=== PATIENT | male | born 1995 | race Caucasian/White ===

== ENCOUNTER 2017-09-21 19:50 | Emergency (ER) | payer OTHER ==
--- NOTE | 2017-09-21 20:00 | UC ---
Back Pain HPI - HPI Summary HPI Summary: 21 year old male presents with complains of back pain for 2 weeks and chronic stomach pain secondary to gastroparesis. - History of Current Complaint Stated Complaint: BACK/STOMACH PAINS Time Seen by Provider: 09/21/17 20:00 Hx Obtained From: Patient Onset/Duration: Lasting Weeks Timing: Constant Severity Initially: Moderate Severity Currently: Moderate Back Pain: Is Discrete @ - right si - Allergies/Home Medications Allergies/Adverse Reactions: Allergies Allergy/AdvReac Type Severity Reaction Status Date / Time Amoxicillin [From Augmentin] AdvReac Intermediate Vomiting Verified 09/21/17 20: 07 Clavulanic Acid AdvReac Intermediate Vomiting Verified 09/21/17 20:07 [From Augmentin] Home Medications: Home Medications Omeprazole CAP* [Prilosec CAP* 20 MG] 20 mg PO DAILY 09/21/17 [History Confirmed 09/21/17] PMH/Surg Hx/FS Hx/Imm Hx Previously Healthy: Yes - Surgical History Surgical History: Yes Surgery Procedure, Year, and Place: hernia repair. T & A - Family History Known Family History: Positive: None - Social History Alcohol Use: Occasionally Substance Use Type: None, Marijuana Smoking Status (MU): Former Smoker Type: Cigarettes Amount Used/How Often: 2-3 DAY Length of Time of Smoking/Using Tobacco: 7 YRS Have You Smoked in the Last Year: Yes When Did the Patient Quit Smoking/Using Tobacco: 2ppd Household Exposure Type: Cigarettes - Immunization History Vaccination Up to Date: Yes Review of Systems Constitutional: Negative Skin: Negative Eyes: Negative ENT: Negative Respiratory: Negative Cardiovascular: Negative Gastrointestinal: Abdominal Pain - diffuse Genitourinary: Negative Motor: Negative Neurovascular: Negative Musculoskeletal: Other: - right si joint pain Neurological: Negative Psychological: Negative All Other Systems Reviewed And Are Negative: Yes Physical Exam Triage Information Reviewed: Yes Vital Signs Reviewed: Yes Eye Exam: Normal ENT Exam: Normal Dental Exam: Normal Neck exam: Normal Neck: Positive: 1 Respiratory Exam: Normal Cardiovascular Exam: Normal Abdomen Description: Positive: Other: - diffuse tenderness Musculoskeletal: Positive: Other: - right si joint pain Neurological Exam: Normal Psychological Exam: Normal Skin Exam: Normal Back Pain Course/Dx - Differential Dx/Diagnosis Provider Diagnoses: right si joint pain. diffuse abominal pain Discharge - Discharge Plan Condition: Stable Disposition: HOME Prescriptions: Meloxicam(NF) [Mobic(NF)] 7.5 mg PO BID #30 tab Methocarbamol TAB* [Robaxin 500 MG TAB*] 500 mg PO TID PRN #30 tab PRN Reason: Spasms - Back Ondansetron TAB* [Zofran 4 MG Tab*] 4 mg PO Q8H PRN #12 tab PRN Reason: Nausea Patient Education Materials: Muscle Spasm (ED), Gastroparesis (ED) Referrals: Phoebe Hart PA [Primary Care Provider] - Joshua Dunn [Physical Therapist] -
[2017-09-21 20:06] VITALS: BP 113/61
[2017-09-21] MEDS ORDERED: Ondansetron ODT TAB* 4 MG PO ONE (20:14)
[2017-09-21] MEDS ORDERED: predniSONE TAB* 20 MG PO ONE (20:16)
== END 2017-09-21 20:28 | disposition home or self-care (01) ==
LOC: UCCORT 19:50
DX: M53.3 Sacrococcygeal disorders, not elsewhere classified (principal); R10.84 Generalized abdominal pain; Z87.891 Personal history of nicotine dependence; Z88.1 Allergy status to other antibiotic agents
CPT/HCPCS: 99212; A9270-GY; G0463; J7512

== ENCOUNTER 2017-10-02 20:36 | Emergency (ER) | payer OTHER ==
[2017-10-02 20:56] VITALS: BP 112/59
--- NOTE | 2017-10-02 20:57 | UC ---
Back Pain HPI - HPI Summary HPI Summary: Pt presents with mid/upper back pain and chronic nausea. 1) Back pain. He tells me that about a month ago he woke up and had an aching pain in his mid to upper back that was worse with movement. Resting improved his pain. He tried tylenol and ibuprofen without relief. About 2 weeks ago he came to our UC and was rx'd meloxicam and robaxin, he has been taking those with mild relief. He denies specific injury, numbness, tingling, radiation of pain, dysuria, flank pain, chest pain, SOB, or headaches. 2) Chronic nausea. He tells me that he has a history of gastroparesis. He is being followed by GI and is scheduled to see his doctor next week for medication adjustments. Over the last 2 weeks his nausea has gotten worse. At that same visit 2 weeks ago to our UC, he was rx'd Zofran to use intermittently - he reports great relief and would like a refill of this until his GI appt next week. He denies vomiting, increased abdominal pain, diarrhea, constipation , blood in his stool, or dark stools. - History of Current Complaint Chief Complaint: UCBackPain Stated Complaint: BACK PAIN/NAUSEA Time Seen by Provider: 10/02/17 20:56 Hx Obtained From: Patient Onset/Duration: Gradual Onset Timing: Constant Severity Initially: Moderate Severity Currently: Moderate Pain Intensity: 7 Pain Scale Used: 0-10 Numeric - Allergies/Home Medications Allergies/Adverse Reactions: Allergies Allergy/AdvReac Type Severity Reaction Status Date / Time Amoxicillin [From Augmentin] AdvReac Intermediate Vomiting Verified 10/02/17 20: 51 Clavulanic Acid AdvReac Intermediate Vomiting Verified 10/02/17 20:51 [From Augmentin] PMH/Surg Hx/FS Hx/Imm Hx GI/ History: Gastroesophageal Reflux, Ulcer, Other Other GI/ History: Gastroparesis - Surgical History Surgical History: Yes Surgery Procedure, Year, and Place: Inguinal Herniorrhaphies. T&A - Family History Known Family History: Positive: None - Social History Occupation: Employed Full-time Lives: Alone Alcohol Use: None Alcohol Amount: Previous alcohol abuse Substance Use Type: None Smoking Status (MU): Heavy Every Day Tobacco Smoker Type: Cigarettes Amount Used/How Often: 1 PPD Length of Time of Smoking/Using Tobacco: Since Age 17 Have You Smoked in the Last Year: Yes When Did the Patient Quit Smoking/Using Tobacco: 2ppd Household Exposure Type: Cigarettes Cessation Counseling: Patient Advised to Stop - Immunization History Most Recent Influenza Vaccination: Not the 2016/2017 Season Vaccination Up to Date: Yes Review of Systems Constitutional: Negative Skin: Negative Eyes: Negative ENT: Negative Respiratory: Negative Cardiovascular: Negative Gastrointestinal: Nausea Genitourinary: Negative Motor: Negative Neurovascular: Negative Musculoskeletal: Decreased ROM - Back, Other: - Mid/Upper back pain Neurological: Negative Psychological: Negative All Other Systems Reviewed And Are Negative: Yes Physical Exam Triage Information Reviewed: Yes Appearance: Well-Appearing, No Pain Distress, Well-Nourished Vital Signs: Initial Vital Signs Temp 98.1 F 10/02/17 20:47 Pulse 76 10/02/17 20:47 Resp 16 10/02/17 20:47 BP 112/59 10/02/17 20:47 Pulse Ox 100 10/02/17 20:47 Vital Signs Reviewed: Yes Eyes: Positive: Conjunctiva Clear. Negative: Conjunctiva Inflamed, Discharge Neck: Positive: Supple, No Lymphadenopathy, Other: - FROM. NTTP. No vertebral tenderness. Respiratory: Positive: Chest non-tender, Lungs clear, Normal breath sounds, No respiratory distress Cardiovascular: Positive: RRR, No Murmur, Pulses Normal Abdomen Description: Positive: Nontender, No Organomegaly, Soft. Negative: CVA Tenderness (R), CVA Tenderness (L), Distended, Guarding Bowel Sounds: Positive: Present Musculoskeletal: Positive: Strength Intact - B/L UEs and LEs. Dorsiflexion and plantar flexion., No Edema, ROM Limited @ - Spine flexion due to pain., Other: - TTP over paraspinal muscles upper and mid back bilaterally. No vertebral tenderess. No obvious bony deformities or scoliosis. Neurological: Positive: Alert, Muscle Tone Normal, Other: - CN II-XII grossly intact. No focal deficits. C4-T1 sensations intact. L3-S1 sensations intact. Reflexes normal throughout. Psychological: Positive: Age Appropriate Behavior Skin: Positive: Other - No ecchymosis.. Negative: rashes Back Pain Course/Dx - Course Course Of Treatment: Strongly advised follow up with his PCP regarding his ongoing back pain. Advised to stop meloxicam and robaxin - will try Flexeril and Diclofenac. Rest and use a heating pad on the areas of discomfort. Will rx for another course of Zofran, enough to get him to his appointment with his GI next week. Strongly advised to keep that appointment. - Differential Dx/Diagnosis Differential Diagnosis/HQI/PQRI: Herniated Disc, Strain, Sprain, Other - Nausea. Provider Diagnoses: Upper back muscle spasm. Gastroparesis. Nausea Discharge - Discharge Plan Condition: Stable Disposition: HOME Prescriptions: Cyclobenzaprine TAB* [Flexeril 10 MG TAB*] 10 mg PO BEDTIME PRN #10 tab PRN Reason: Pain Diclofenac Sodium EC TAB* [Voltaren EC TAB*] 25 mg PO TID PRN #30 tab.ec PRN Reason: Pain Ondansetron TAB* [Zofran 4 MG Tab*] 4 mg PO Q8H PRN #12 tab PRN Reason: Nausea Patient Education Materials: Back Pain (ED), Core Strengthening Exercises (GEN) Referrals: Phoebe Hart PA [Primary Care Provider] - Additional Instructions: 1) Please keep your follow up appointment with your GI doctor next week. 2) Please follow up with your PCP in one week regarding your back pain. Try resting and heating the back for comfort. If you develop a fever, SOB, chest pain, new or worsening symptoms - please call your PCP or go to the ED.
[2017-10-02] MEDS ORDERED: Ondansetron TAB* 4 MG PO ONE (21:13)
[2017-10-02] MEDS ORDERED: Ondansetron ODT TAB* 4 MG ONE (21:24)
[2017-10-02] MEDS ORDERED: Ondansetron ODT TAB* 4 MG PO ONE (21:25)
== END 2017-10-02 21:27 | disposition home or self-care (01) ==
LOC: UCCORT 20:36
DX: M62.830 Muscle spasm of back (principal); K31.84 Gastroparesis; R11.0 Nausea; Z88.1 Allergy status to other antibiotic agents; F17.210 Nicotine dependence, cigarettes, uncomplicated
CPT/HCPCS: 99212; A9270-GY; G0463

== ENCOUNTER 2017-11-11 17:09 | Emergency (ER) | payer OTHER ==
[2017-11-11 18:00] VITALS: BP 121/63
--- NOTE | 2017-11-11 19:13 | UC ---
Hand/Wrist HPI - HPI Summary HPI Summary: 22 yo male punched wall in anger x 3 c/o right 2nd and 4th finger pain hx fx base of r 5th mc he is right handed - History Of Current Complaint Chief Complaint: UCUpperExtremity Stated Complaint: RIGHT HAND INJURY Time Seen by Provider: 11/11/17 19:01 Hx Obtained From: Patient Onset/Duration: Sudden Onset, Lasting Hours Severity Initially: Moderate Severity Currently: Moderate Pain Intensity: 4 Pain Scale Used: 0-10 Numeric Character Of Pain: Sharp, Aching Aggravating Factor(s): Movement Alleviating Factor(s): Rest, Ice Associated Signs And Symptoms: Positive: Negative Related History: Dominant Hand Right - Allergies/Home Medications Allergies/Adverse Reactions: Allergies Allergy/AdvReac Type Severity Reaction Status Date / Time Amoxicillin [From Augmentin] AdvReac Intermediate Vomiting Verified 11/11/17 17: 55 Clavulanic Acid AdvReac Intermediate Vomiting Verified 11/11/17 17:55 [From Augmentin] PMH/Surg Hx/FS Hx/Imm Hx Previously Healthy: Yes - Surgical History Surgical History: Yes Surgery Procedure, Year, and Place: Inguinal Herniorrhaphies. T&A - Family History Known Family History: Positive: Hypertension - Social History Alcohol Use: None Alcohol Amount: Previous alcohol abuse Substance Use Type: None Smoking Status (MU): Heavy Every Day Tobacco Smoker Type: Cigarettes Amount Used/How Often: 1 PPD Length of Time of Smoking/Using Tobacco: Since Age 17 Have You Smoked in the Last Year: Yes When Did the Patient Quit Smoking/Using Tobacco: 2ppd Household Exposure Type: Cigarettes - Immunization History Most Recent Influenza Vaccination: Not the Season Vaccination Up to Date: Yes Review of Systems Constitutional: Fever Skin: Negative Eyes: Negative ENT: Negative Respiratory: Negative Cardiovascular: Negative Gastrointestinal: Negative Genitourinary: Negative Motor: Negative Neurovascular: Negative Musculoskeletal: Arthralgia Neurological: Negative Psychological: Negative Is Patient Immunocompromised?: No All Other Systems Reviewed And Are Negative: Yes Physical Exam Triage Information Reviewed: Yes Appearance: Well-Appearing, No Pain Distress, Well-Nourished Vital Signs: Initial Vital Signs Temp 98.2 F 11/11/17 17:54 Pulse 92 11/11/17 17:54 Resp 16 11/11/17 17:54 BP 121/63 11/11/17 17:54 Pulse Ox 98 11/11/17 17:54 Vital Signs Reviewed: Yes Eyes: Positive: Conjunctiva Clear ENT: Positive: Hearing grossly normal, Pharyngeal erythema, Nasal congestion, Nasal drainage, TMs normal, Uvula midline Neck: Positive: Supple, Nontender, No Lymphadenopathy Respiratory: Positive: Lungs clear, Normal breath sounds, No respiratory distress Cardiovascular: Positive: RRR Bowel Sounds: Positive: Present Musculoskeletal: Positive: No Edema. Negative: ROM Intact Neurological: Positive: Alert Psychological Exam: Normal Skin Exam: Normal Hand/Wrist Course/Dx - Differential Dx/Diagnosis Provider Diagnoses: right hand/finger contusions Discharge - Discharge Plan Condition: Stable Disposition: HOME Patient Education Materials: Contusion in Adults (ED) Forms: *Work Release Referrals: Phoebe Hart PA [Primary Care Provider] - 1 Week (if not better) Additional Instructions: no fx noted rest ice elevation kylie tylenol or advil for pain Images Hands: 1 - tender 2 - tender
--- NOTE | 2017-11-11 19:40 | RAD ---
INDICATION: Right hand pain 2 days after punching a wall COMPARISON: None. TECHNIQUE: 4 views of the right hand were obtained. FINDINGS: The adequately corticated bones are in normal alignment. No significant focal osseous abnormality or fracture is seen. Joint spaces appear maintained. IMPRESSION: Normal right hand radiograph. If the patient's symptoms persist, follow-up imaging is recommended.
== END 2017-11-11 19:20 | disposition home or self-care (01) ==
LOC: UCCORT 17:09
DX: S60.221A Contusion of right hand, initial encounter (principal); S60.00XA Contusion of unspecified finger without damage to nail, initial encounter; W22.09XA Striking against other stationary object, initial encounter; Y93.89 Activity, other specified; Y92.9 Unspecified place or not applicable; Z72.0 Tobacco use; F10.21 Alcohol dependence, in remission
CPT/HCPCS: 99211; G0463

== ENCOUNTER 2018-08-08 14:03 | Emergency (ER) | payer OTHER ==
[2018-08-08 14:24] VITALS: BP 118/58
--- NOTE | 2018-08-08 15:17 | UC ---
Skin Complaint HPI - HPI Summary HPI Summary: Pt presents with sudden onset of rash to bilateral antecubital area upper extremities. - History of Current Complaint Chief Complaint: UCSkin Time Seen by Provider: 08/08/18 15:00 Stated Complaint: SKIN CONCERN Hx Obtained From: Patient Onset/Duration: Sudden Onset, Lasting Weeks, Still Present Skin Exposure Onset/Duration: Weeks Ago Timing: Constant Onset Severity: Mild Current Severity: Mild Pain Intensity: 0 Location: Discrete Character: Pruritus, Redness Aggravating Factor(s): Touch Alleviating Factor(s): Nothing Associated Signs & Symptoms: Positive: Rash - Allergy/Home Medications Allergies/Adverse Reactions: Allergies Allergy/AdvReac Type Severity Reaction Status Date / Time amoxicillin [From Augmentin] AdvReac Vomiting Verified 08/08/18 14:21 clavulanic acid AdvReac Vomiting Verified 08/08/18 14:21 [From Augmentin] Review of Systems Constitutional: Negative Skin: Rash Eyes: Negative ENT: Negative Respiratory: Negative Cardiovascular: Negative Gastrointestinal: Negative Genitourinary: Negative Motor: Negative Neurovascular: Negative Musculoskeletal: Negative Neurological: Negative Psychological: Negative Is Patient Immunocompromised?: No All Other Systems Reviewed And Are Negative: Yes PMH/Surg Hx/FS Hx/Imm Hx Previously Healthy: Yes - Surgical History Surgical History: Yes Surgery Procedure, Year, and Place: Inguinal Herniorrhaphies. T&A - Family History Known Family History: Positive: Hypertension, Other - mother has gastroparesis - Social History Occupation: Employed Full-time Lives: With Family Alcohol Use: Occasionally Alcohol Amount: Previous alcohol abuse Substance Use Type: None Smoking Status (MU): Heavy Every Day Tobacco Smoker Type: Cigarettes, Smokeless Tobacco Amount Used/How Often: 1 PPD Length of Time of Smoking/Using Tobacco: Since Age 12 Have You Smoked in the Last Year: Yes When Did the Patient Quit Smoking/Using Tobacco: 2ppd Household Exposure Type: Cigarettes - Immunization History Most Recent Influenza Vaccination: Not the 2016/2017 Season Vaccination Up to Date: Yes Physical Exam Triage Information Reviewed: Yes Appearance: Well-Appearing Vital Signs: Initial Vital Signs Temp 98 F 08/08/18 14:20 Pulse 87 08/08/18 14:20 Resp 14 08/08/18 14:20 BP 118/58 08/08/18 14:20 Pulse Ox 90 08/08/18 14:20 Vital Signs Reviewed: Yes Eye Exam: Normal ENT Exam: Normal ENT: Positive: Hearing grossly normal Dental: Positive: Gross Decay/Caries @ Neck exam: Normal Respiratory: Positive: No respiratory distress Musculoskeletal Exam: Normal Neurological Exam: Normal Psychological Exam: Normal Skin Exam: Other - pin prick erythematous flat rash to bilateral antecubital space upper extremities. Pt c/o of pruritis, scratch layne noted on left upper extremity Course/Dx - Differential Diagnoses - Skin Complaint Differential Diagnoses: Contact Dermatitis, Scabies, Other - petichiae - Diagnoses Provider Diagnoses: rash upper extremities Discharge - Sign-Out/Discharge Documenting (check all that apply): Patient Departure All imaging exams completed and their final reports reviewed: No Studies - Discharge Plan Condition: Stable Disposition: HOME Prescriptions: predniSONE TAB* [Deltasone 20 MG TAB*] 20 mg PO DAILY #4 tab Patient Education Materials: Antihistamine (By mouth), Acute Rash (ED) Forms: *Work Release Referrals: Phoebe Hart PA [Primary Care Provider] - As Soon As Possible - Billing Disposition and Condition Condition: STABLE Disposition: Home
== END 2018-08-08 15:34 | disposition home or self-care (01) ==
LOC: UCCORT 14:03
DX: R21 Rash and other nonspecific skin eruption (principal); Z88.0 Allergy status to penicillin; Z88.8 Allergy status to other drugs, medicaments and biological substances; F17.210 Nicotine dependence, cigarettes, uncomplicated
CPT/HCPCS: 99212; G0463

== ENCOUNTER 2020-01-01 12:32 | Emergency (ER) | payer OTHER ==
[2020-01-01 12:42] VITALS: BP 104/62
--- NOTE | 2020-01-01 12:46 | UC ---
Abdominal Pain Male HPI - HPI Summary HPI Summary: 24-year-old male presents with 3 day history of right-sided abdominal pain. Describes pain as sharp and waxing and waning in intensity. States pain does radiate through to his back. Associated with mild nausea. Reports having regular bowel movements. Denies fever, chills, vomiting, diarrhea, blood in stool, melena, dysuria, frequency, urgency, or hematuria. - History of Current Complaint Chief Complaint: UCAbdominalPain Stated Complaint: RT SIDE ABD PAIN Time Seen by Provider: 01/01/20 12:43 Hx Obtained From: Patient Pain Intensity: 8 - Allergies/Home Medications Allergies/Adverse Reactions: Allergies Allergy/AdvReac Type Severity Reaction Status Date / Time amoxicillin [From Augmentin] AdvReac Vomiting Verified 01/01/20 12:37 clavulanic acid AdvReac Vomiting Verified 01/01/20 12:37 [From Augmentin] Home Medications: Home Medications Ondansetron HCl [Zofran 4 MG TAB] 4 mg PO DAILY PRN 04/17/18 [History Confirmed 01/01/20] Ibuprofen TAB* [Advil TAB*] 600 mg PO Q6H PRN 01/01/20 [History Confirmed ] PMH/Surg Hx/FS Hx/Imm Hx Previously Healthy: Yes GI/ History: Other - Gastroparesis - Surgical History Surgical History: Yes Surgery Procedure, Year, and Place: Inguinal Herniorrhaphies. T&A - Family History Known Family History: Positive: Hypertension, Other - mother has gastroparesis - Social History Occupation: Employed Full-time Lives: Alone Alcohol Use: None Alcohol Amount: Previous alcohol abuse Substance Use Type: None Smoking Status (MU): Heavy Every Day Tobacco Smoker Type: Cigarettes, Smokeless Tobacco Amount Used/How Often: 1/2 PPD Length of Time of Smoking/Using Tobacco: Since Age 12 Have You Smoked in the Last Year: Yes When Did the Patient Quit Smoking/Using Tobacco: 2ppd Household Exposure Type: Cigarettes - Immunization History Most Recent Influenza Vaccination: Not the 2017/2017 Season Vaccination Up to Date: Yes Review of Systems All Other Systems Reviewed And Are Negative: Yes Constitutional: Negative: Fever, Chills Respiratory: Positive: Negative Cardiovascular: Positive: Negative Gastrointestinal: Positive: Abdominal Pain, Nausea. Negative: Vomiting, Diarrhea Genitourinary: Negative: Dysuria, Hematuria, Frequency, Urgency Musculoskeletal: Positive: Negative Neurological/Mental Status: Positive: Negative Is Patient Immunocompromised?: No Physical Exam - Summary Physical Exam Summary: GENERAL APPEARANCE: Well developed, well nourished, alert and cooperative, and appears to be in no acute distress. EYES: Conjunctiva clear. No drainage. EARS: External auditory canals and tympanic membranes clear, hearing grossly intact. NOSE: No nasal discharge. THROAT: Pharynx normal. No tonsilar inflammation, swelling, exudate, or lesions. Uvula midline. NECK: Neck supple, non-tender without lymphadenopathy. CARDIAC: Normal S1 and S2. No S3, S4 or murmurs. Rhythm is regular. There is no peripheral edema, cyanosis or pallor. Extremities are warm and well perfused. Capillary refill is less than 2 seconds. Peripheral pulses intact. LUNGS: Clear to auscultation without rales, rhonchi, wheezing or diminished breath sounds. ABDOMEN: Positive bowel sounds. Soft, nondistended. RUQ and RLQ tenderness without guarding or rebound. No masses or hepatosplenomegally. No CVA tenderness. MUSKULOSKELETAL: ROM intact to all extremities. No joint erythema or tenderness. Normal muscular development. Normal gait. SKIN: Skin normal color, texture and turgor with no lesions or eruptions. Triage Information Reviewed: Yes Vital Signs: Initial Vital Signs Temp 98.2 F 01/01/20 12:38 Pulse 86 01/01/20 12:38 Resp 15 01/01/20 12:38 BP 104/62 01/01/20 12:38 Pulse Ox 99 01/01/20 12:38 Vital Signs Reviewed: Yes Abd Pain Male Course/Dx - Course Course Of Treatment: 24-year-old male presents with 3 day history of right-sided abdominal pain. Describes pain as sharp and waxing and waning in intensity. States pain does radiate through to his back. Associated with mild nausea. Reports having regular bowel movements. Denies fever, chills, vomiting, diarrhea, blood in stool, melena, dysuria, frequency, urgency, or hematuria. Afebrile. Vital signs stable. Patient had a soft, nondistended abdomen with RUQ and RLQ tenderness without guarding or rebound. No CVA tenderness. Remainder of exam was unremarkable. [id number] urinalysis was normal. Reviewed results with the patient. Discussed with the patient that with a normal urine I have a very low suspicion that his pain would be related to a kidney stone and since I cannot rule out other potential causes including gallbladder disease and appendicitis I recommended he be evaluated in the emergency room at this time. Patient is agreeable to this evidence collecting to transport via private vehicle. - Differential Dx/Clinical Impression Differential Diagnosis/HQI/PQRI: Appendicitis, Bowel Obstruction, Diverticulitis , Gall Bladder Disease, Pancreatitis, Renal Colic, Ureteral Stone, Urinary Tract Infection Provider Diagnosis: Right sided abdominal pain Discharge ED - Sign-Out/Discharge Documenting (check all that apply): Patient Departure All imaging exams completed and their final reports reviewed: No Studies - Discharge Plan Condition: Stable Disposition: HOME-RECOMMEND TO ED Referrals: Phoebe Hart PA [Primary Care Provider] - Additional Instructions: The urine test performed in the clinic today was normal which lowers my suspicion for a kidney stone. I cannot fully rule out this time of her causes of your abdominal pain including gallbladder disease or appendicitis therefore I am recommending that she go to the emergency room for further evaluation. Please go directly to the emergency room from here. Do not eat or drink anything until after you have been evaluated. - Billing Disposition and Condition Condition: STABLE Disposition: Home-Recommend to ED - Attestation Statements Provider Attestation: This patient was not seen by me. I was available for consult. Chart reviewed. JANE
--- OUTSIDE RECORDS SUMMARY | 2020-01-01 13:12 | XMS REPORT | Continuity of Care Document ---
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 Will Rodriguez MD - Gastroenterology Care Team Information Party Bus Driver Problems Active Problems Provider Date Concussion with no loss of consciousness LISA Chiu Onset: 2018 Note: 04/2019 Attention seeking behavior LISA Chiu Onset: 09/27/2019 Mood disorder LISA Chiu Onset: 09/27/2019 Personality disorder LISA Chiu Onset: 09/27/2019 Gastroparesis syndrome LISA Chiu Onset: 09/27/2019 Social History Type Date Description Comments Sex Unknown Tobacco Use Start: Unknown Started at 13 yrs old 10/29 ppd 08/2019 ETOH Use Has consumed alcohol in the past Tobacco Use Start: Unknown Heavy tobacco smoker Chews Tobacco (more than 10 cigarettes/day) Recreational Drug Use Former Drug User 08/2019 marijuana in past Smoking Status Reviewed: 11/26/19 Heavy tobacco smoker Chews Tobacco (more than 10 cigarettes/day) Allergies, Adverse Reactions, Alerts Active Allergies Reaction Severity Comments Date Augmentin Vomitting 09/23/2019 Medications Active Medications SIG Qnty Indications Ordering Provider Date Mirtazapine 1 tab by mouth at 30tabs F39 Timothy 10/19/2019 15mg bedtime MD Malaika Tablets Zofran take 1 tab every Syam, Biswarup, 4mg Tablets 6 hours as needed MD for vomiting. Reglan 1 tab by mouth Syam, Biswarup, 10mg Tablets every day 4x a MD day History Medications Fluoxetine HCL 1 by mouth 30caps F39 Timothy Dai, 09/23/2019 - 20mg every day 10/19/2019 Capsules Immunizations CPT Code Status Date Vaccine Lot # [id number] Given 10/19/2019 Influenza Virus Vaccine, Flu>3yr/ [id number] Quadrivalent, Split, Preservative Free Vital Signs Date Vital Result Comment 11/26/2019 9:33am Height 68.5 inches 5'8.50" Weight 133.25 lb Heart Rate 70 /min BP Systolic Sitting 108 mmHg BP Diastolic Sitting 60 mmHg O2 % BldC Oximetry 98 % BMI (Body Mass Index) 20.0 kg/m2 10/19/2019 10:21am Height 68.5 inches 5'8.50" Weight 132.44 lb Heart Rate 82 /min BP Systolic Sitting 100 mmHg BP Diastolic Sitting 64 mmHg O2 % BldC Oximetry 98 % BMI (Body Mass Index) 19.8 kg/m2 Results Description No Information Available Procedures Description No Information Available Medical Devices Description No Information Available Encounters Type Date Location Provider Dx Diagnosis Office Visit 10/19/2019 [facility] Phoebe Hart, F39 Unspecified mood 10:30a PA [affective] disorder F60.9 Personality disorder, unspecified Z23 Encounter for immunization Office Visit 09/23/2019 11:30a [facility] Phoebe F39 Unspecified mood Care [place]anner, PA [affective] disorder K31.84 Gastroparesis Assessments Date Code Description Provider 11/26/2019 F39 Unspecified mood [affective] disorder Phoebe Hart, PA 11/26/2019 F60.9 Personality disorder, unspecified Phoebe [place]ois, PA 11/26/2019 K31.84 Gastroparesis Phoebe Hart, PA 11/26/2019 M94.0 Chondrocostal junction syndrome [Tietze] Phoebe Hart, PA 10/19/2019 F39 Unspecified mood [affective] disorder Phoebe [place], PA 10/19/2019 F60.9 Personality disorder, unspecified Phoebe [place], PA 10/19/2019 Z23 Encounter for immunization Phoebe Hart, PA 09/23/2019 F39 Unspecified mood [affective] disorder Phoebe [place], PA 09/23/2019 K31.84 Gastroparesis LISA hCiu Plan of Treatment Future Appointment(s):01/25/2020 10:00 am - LISA Chiu at [facility]11/26/2019 - Phoebe Hart, PAF39 Unspecified mood [affective] [id number] Personality disorder, prauabxbwkqW31.84 [id number] Chondrocostal junction syndrome [Tietze] Functional Status Description No Information Available Mental Status Description No Information Available Referrals Description No Information Available
== END 2020-01-01 13:09 | disposition home health service (06) ==
LOC: UCCORT 12:32
DX: R10.9 Unspecified abdominal pain (principal); R11.0 Nausea; K31.84 Gastroparesis; F17.210 Nicotine dependence, cigarettes, uncomplicated; F17.290 Nicotine dependence, other tobacco product, uncomplicated; Z88.0 Allergy status to penicillin
CPT/HCPCS: 81003; 99212; G0463